=== PATIENT | female | born 1985 | race Caucasian/White ===

== ENCOUNTER 2020-10-31 08:33 | Emergency (ER) | payer OTHER ==
[~2020-10-31] VITALS: Ht 165.1 cm; Wt 97.7 kg
[~2020-10-31 08:33] MED LIST: PRENATAL1 TA1 PO
[2020-10-31 08:35] VITALS: TEMP 9.1
[2020-10-31 10:33] LABS: COLLECTION METHOD CLEAN CATCH
[2020-10-31 10:35] VITALS: BP 115/68
[2020-10-31 10:39] LABS: PH 5 (5-8); SQUAMOUS EPITHELIAL 0-2 /hpf; URINE APPEARANCE Clear; URINE BACTERIA Rare /hpf; URINE BILIRUBIN Negative (NEGATIVE); URINE BLOOD Negative (NEGATIVE); URINE COLOR Yellow; URINE GLUCOSE Negative (NEGATIVE); URINE KETONE Negative (NEGATIVE); URINE LEUKOCYTE ESTERASE Negative (NEGATIVE); URINE NITRATE Negative (NEGATIVE); URINE PROTEIN(semi-quant) Negative (NEGATIVE); URINE RBC 0-2 /hpf; URINE UROBILINOGEN Negative (NEGATIVE)
[2020-10-31] MEDS ORDERED: NORCO 325 MG-51 TAB PO (11:03)
[2020-10-31 11:34] VITALS: PULSE 105
== END 2020-10-31 11:34 | disposition home or self-care (01) ==
LOC: COL.ER 08:33
PROVIDERS: Emergency Medicine
DX: S80.02XA Contusion of left knee, initial encounter (principal); S60.212A Contusion of left wrist, initial encounter; M23.91 Unspecified internal derangement of right knee; V43.52XA Car driver injured in collision with other type car in traffic accident, initial encounter
CPT/HCPCS: 31289; L1830; L1846

== ENCOUNTER → 2021-06-06 | Outpatient (CLI) | payer BC ==
[~2021-06-06] VITALS: Ht 165.1 cm; Wt 102.0 kg
[~2021-06-06] MED LIST changes: +CLARITIN 1010 MG/TAB PO; +FISH OIL 1000MG1 CAP PO; +NORCO 325 MG-51 TAB PO; +PRIL40 PO; +ROBAXIN 75750 MG/TAB PO; +VITAMIND3 5000 PO; +XANAX 0.5MG0.5 MG PO; +ZOLOFT 100MG100 MG PO
[2021-06-06 13:35] VITALS: BP 107/48; PULSE 83; TEMP 98.8
[2021-06-06 14:25] VITALS: BP 126/85; PULSE 79
== END ==
LOC: COL.RAD 06-05 07:00
DX: M48.02 Spinal stenosis, cervical region (principal)
CPT/HCPCS: J1100

== ENCOUNTER → 2021-08-31 | Outpatient (CLI) | payer BC ==
--- NOTE | 2021-08-27 11:48 | NUR ---
LMOM FOR WENDY. ALSO ASKED FOR MEDS AND ANY SCANS SHE MIGHT HAVE HAD DONE IN THIS AREA. GAVE HER INSTERUCTIONS AND CALL BACK NUMBER
[~2021-08-31] VITALS: Ht 165.1 cm; Wt 101.4 kg
[~2021-08-31] MED LIST changes: +VALIUM 2MG T2 MG/TAB PO
[2021-08-31 13:28] VITALS: BP 108/77; PULSE 87; TEMP 98.5
[2021-08-31 14:10] VITALS: BP 107/75; PULSE 80
== END ==
LOC: COL.RAD 12:57
DX: M48.02 Spinal stenosis, cervical region (principal)
CPT/HCPCS: J1100